=== PATIENT | female | born 1945 | race Caucasian/White ===

== ENCOUNTER 2017-09-25 20:12 | Emergency (ER) | payer OTHER, MEDICARE ==
--- NOTE | 2017-09-25 20:24 | PDOC ---
History of Present Illness - General History Source: Patient Exam Limitations: No Limitations - History of Present Illness Initial Comments: 09/25/17 20:31 The patient is a 71-year-old female, with no significant past medical history, who presents to the ED with a nosebleed that began about a hour an half ago. The patient denies any recent trauma to her nose. She does report that her father recently 2 weeks ago and she has been crying and blowing her nose more often. She denies being on any blood thinner medications. The patient denies any lightheadedness or dizziness. She denies any hx of bleeding disorders. PAST MEDICAL HISTORY: no significant history PAST SURGICAL HISTORY: no significant history FAMILY HISTORY: no pertinent history HISTORY: Pt lives with family and is employed. MEDICATIONS: reviewed ALLERGIES: As per nursing notes Adult ROS General: No fevers or chills, no weakness, no weight loss HEENT: (+)Nosebleed. No change in vision. No sore throat,. No ear pain CardioVascular: No chest pain or shortness of breath Respiratory:No cough, or wheezing. Gastrointestinal: no nausea, vomiting, diarrhea or constipation, No rectal bleeding Genitourinary: No dysuria, hematuria, or frequency Musculoskeletal: No joint or muscle pain or swelling Neurologic: No headache, vertigo, dizziness or loss of consciousness Psychiatric: nor depression Skin: No rashes or easy bruising Endocrine: no increased thirst or abnormal weight change Allergic: no skin or latex allergy All other systems reviewed and normal Basic PE GENERAL: The patient is awake, alert, and fully oriented, in no acute distress. EXTREMITIES: Normal range of motion, no edema. NEUROLOGICAL: Normal speech, normal gait. PSYCH: Normal mood, normal affect. SKIN: Warm, Dry, normal turgor, no rashes or lesions noted. <Wendy Seals - Last Filed: 09/25/17 20:31> - General History Source: Patient Exam Limitations: No Limitations - History of Present Illness Initial Comments: A portion of this note was documented by scribe services under my direction. I have reviewed the details of the note, within reason, and agree with the documentation. The case summary and management plan written by me. Assessment and plan: This is a 71-year-old female who came in with epistaxis. Patient held pressure to the nose for approximately 20 minutes prior to my evaluation. At the time of my evaluation the nose has stopped bleeding however there was an area of the septum that appeared to be bleeding. Patient requested that did not be cauterized as she did not want it cauterized. Patient otherwise is healthy and does not take any blood thinners and I discussed with her the importance of using a humidifier at night and placing a little petroleum jelly in her nose prior to going to bed to help with keeping the mucous membranes moist. Patient discharged will follow-up with her primary care doctor as needed 09/25/17 20:42 <Chen Queen I - Last Filed: 09/25/17 20:44> - General Chief Complaint: Nasal Bleeding Stated Complaint: NOSE BLEED Time Seen by Provider: 09/25/17 20:15 Past History <Wendy Seals - Last Filed: 09/25/17 20:31> <Chen Queen I - Last Filed: 09/25/17 20:44> - Past Medical History Allergies/Adverse Reactions: Allergies Allergy/AdvReac Type Severity Reaction Status Date / Time No Known Allergies Allergy Unverified 03/28/13 15:02 Home Medications: Ambulatory Orders Doxycycline Monohydrate [Oracea] 40 mg PO QOD 03/14/16 *DC/Admit/Observation/Transfer <Wendy Seals - Last Filed: 09/25/17 20:31> - Discharge Dispostion Admit: No <Chen Queen I - Last Filed: 09/25/17 20:44> Diagnosis at time of Disposition: Epistaxis - Discharge Dispostion Disposition: HOME Condition at time of disposition: Good - Patient Instructions Printed Discharge Instructions: Nosebleed, DI for Nosebleed, Nosebleeds ( Alternative Therapy) Additional Instructions: Use a humidifier in your room at night Put some petroleum jelly in your nose before bed as discussed. Return to the emergency department immediately with ANY new, persistent or worsening symptoms. Continue any medications as previously prescribed by your physician. You should follow up with your primary doctor as soon as possible regarding today's emergency department visit. . Please make sure your doctor reviews the results of your emergency evaluation. Thank you for coming to the Emergency Department today for your care. It was a pleasure to see you today. Please note that your evaluation is INCOMPLETE until you follow-up with your doctor.
[2017-09-25 20:46] VITALS: BP 180/98; PULSE 90; TEMP 97.8; BMI 22.4
== END 2017-09-25 20:52 | disposition home or self-care (01) ==
LOC: FER 20:12
DX: R04.0 Epistaxis (principal)
CPT/HCPCS: 99281-25

== ENCOUNTER 2018-01-21 11:18 | Day surgery (SDC) | payer SELFPAY ==
[2018-01-17 11:25] VITALS: BMI 20.9
[2018-01-21] MEDS ORDERED: BACITRACIN 15 GM TUBE TOPICAL OINTMENT ONE (13:34)
[2018-01-21] MEDS ORDERED: EPINEPHrine/PF 1 MG/1 ML (1:1,000) AMPULE ONE (13:34)
[2018-01-21] MEDS ORDERED: LIDOCAINE HCL 1%, 10 MG/ML (20ML VIAL) ONE (13:35)
[2018-01-21] MEDS ORDERED: PROPOFOL 20 ML ONE (13:46)
[2018-01-21] MEDS ORDERED: MIDAZOLAM HCL 2 MG/2 ML SINGLE DOSE VIAL ONE (13:47)
[2018-01-21] MEDS ORDERED: ceFAZolin SODIUM 1 GM VIAL ONE (14:20)
[2018-01-21] MEDS ORDERED: DEXAMETHASONE SOD PHOSPHATE 4 MG/1 ML VIAL ONE ×2 (14:21)
[2018-01-21] MEDS ORDERED: ONDANSETRON 4 MG/2 ML VIAL ONE ×3 (14:21→16:34)
[2018-01-21] MEDS ORDERED: DESFLURANE GAS 240 ML BOTTLE IH ONE (14:26)
[2018-01-21] MEDS ORDERED: KETOROLAC TROMETHAMINE 30 MG/1 ML VIAL ONE (16:02)
[2018-01-21] MEDS ORDERED: ONDANSETRON 4 MG/2 ML VIAL IVPB PRN (16:08)
[2018-01-21] MEDS ORDERED: oxyCODONE HCL 5 MG TABLET PO PRN ×2 (16:08)
[2018-01-21] MEDS ORDERED: ONDANSETRON 4 MG/2 ML VIAL IVPUSH PRN (16:09)
[2018-01-21] MEDS ORDERED: ACETAMINOPHEN 1000 MG/100 ML VIAL (NON FORMULARY) IVPB ONE (16:10)
--- NOTE | 2018-01-21 16:11 | OP ---
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
[2018-01-21] MEDS ORDERED: LACTATED RINGERS SOLUTION 1,000 ML IV SCH ×2 (16:15)
[2018-01-21 18:29] VITALS: BP 120/78; PULSE 74; TEMP 97.8
--- NOTE | 2018-01-21 21:01 | OP ---
DATE OF OPERATION: 01/21/2018 TITLE OF PROCEDURE: Liposuction of the abdomen and bilateral flanks and JUVEDERM injection to bilateral facial marionette lines. ATTENDING SURGEON: Gerry Valente MD ASSISTANTS: None. ANESTHESIA: General endotracheal. The patient is marked in the holding area. All risks, benefits, and alternatives to the procedure are discussed, understood; agree to proceed, including the limitations of liposuction for this patient. The patient is given RENARD hose and sequential compression stockings bilaterally. A gram of Ancef is given preoperatively. She is brought to the operating room, placed in supine position. Position is carefully checked by surgical and anesthesia teams. After anesthesia is given, she is prepped and draped in standard surgical fashion. A timeout is called. Patient, procedure, sites, and sides are verified. At this point, several stab wound incisions are made for access for infiltration of wetting solution. Wetting solution is infiltrated. A total of 1800 mL of wetting solution is infiltrated to the abdomen and flanks. The wetting solution is 2 L of lactated Ringer's, and within each liter is 20 mL of 1% lidocaine plain in 1 ampule of 1:1000 epinephrine. A full 25 minutes is awaited for the hemostatic effect of the wetting solution. During which, the injection of JUVEDERM to the marionette lines in a deep dermal plane is performed, 0.8 mL of JUVEDERM Ultra Plus XC is injected, split between the 2 marionette lines. The surgeon is re-scrubbed and prepped and gowned. After this, the SAFE technique of liposuction is performed with pre- and post-tunneling with a 4-mm basket-tip cannula. At completion of this, liposuction is then performed using traditional standard liposuction technique with 4 and 3-mm cannulas. Liposuction aspirates are as follows: The lower abdomen 300 mL, the right middle abdomen is 200 mL, the left middle abdomen is 200 mL, the right upper abdomen is 100 mL, the left upper abdomen is 150 mL, the right flank is 250 mL, the left flank is 200 mL. Total liposuction aspirate for the case is 1600 mL of liposuction aspirate. Endpoint is smooth even contour with the appearance of scant amounts of blood within the liposuction aspirate. Post tunneling is then performed with the 4-mm basket-tip cannula. A smooth even contour is observed. These liposuction holes are closed with a series of interrupted 5-0 nylon suture. Eye patches and Tegaderm are used for dressings. An abdominal binder is applied. Patient is awoken from anesthesia, transferred to Recovery without complication. Sarah [id number]
== END 2018-01-21 18:29 | disposition home or self-care (01) ==
LOC: FASU 11:18
PROVIDERS: ATTEND Plastic Surgery
PROC: 0J083ZZ Alteration of Abdomen Subcutaneous Tissue and Fascia, Percutaneous Approach (ICD-10-PCS; principal; 2018-01-21 14:35)
DX: Z41.1 Encounter for cosmetic surgery (principal)
CPT/HCPCS: 94760

== ENCOUNTER → 2018-09-06 | Day surgery (SDC) | payer OTHER, MEDICARE ==
--- NOTE | 2018-09-09 16:55 | PATH ---
Surgical Pathology Report Patient Name: PINA MEI [facility]. Rec. #: [id number] /Age/Gender: 1945 (Age: 72) / F Account: [id number] Location: [facility] Taken: 09/06/2018 Received: 09/06/2018 Reported: 09/09/2018 Physicians: Christian Tucker M.D. Specimen(s) Received LEFT BREAST CORE BIOPSY 3:00, 4-5 CM FN Clinical History Highly suspicious/malignant Final Diagnosis BREAST, LEFT, 3:00, 4-5 CM FN, CORE BIOPSY: INVASIVE LOBULAR CARCINOMA WITH CLASSIC AND TRABECULAR FEATURES, AT LEAST 5 MM IN THIS MATERIAL. LOBULAR CARCINOMA IN SITU, CLASSICAL TYPE. Results of Estrogen Receptor (ER) and Progesterone Receptor (NH) studies performed at [facility] are as follows: ER (clone [id number] mouse monoclonal antibody by Leica): 100% nuclear staining with strong intensity (Positive). NH (clone16 mouse monoclonal antibody by Leica): > 95% nuclear staining with strong intensity (Positive). Comment: Immunohistochemical stains performed and interpreted at [facility] show E-Cadherin is negative, supportive of lobular phenotype. Myoepithelial markers (p63 and SMM-HC) are preserved in LCIS, while negative on the invasive carcinoma. Results of Her2 (IHC) & Ki-67 studies pending and will be reported separately. Positive and negative controls (internal if applicable) show appropriate results. Formalin fixation and cold ischemic times are within current ASCO/CAP recommendations for ER, NH and Her2 testing. Electronically Signed Orly Harvey M.D. Addendum Reported: 09/12/2018 Addendum Diagnosis Results of Her2 (IHC) & Ki-67 studies performed at [place], [place] ([id number]) are as follows: Her2 IHC (EP3 from [employer], formerly known as [id number], using Ortiz Polymer Refine detection kit): 1+ (Negative). Ki-67: ~10% (Low proliferative index). Positive and negative controls (internal if applicable) show appropriate results. Orly Harvey M.D. Gross Description Received in formalin labeled "left breast biopsy 3:00, 4-5cmfn," is a 2.3 x 1.8 x 0.3 cm area of lopez-yellow, irregular to cylindrical portions of fibroadipose tissue. The formalin is filtered and the specimen is entirely submitted in one cassette. Time to formalin fixation: Less than one minute Total formalin fixation time: Approximately 6 hours. 09/06/201809/06/2018
--- NOTE | 2018-09-13 08:33 | OP ---
DATE OF OPERATION: 09/06/2018 PREOPERATIVE DIAGNOSIS: Left breast mass at 3 o'clock, 4 to 5 cm from the nipple. POSTOPERATIVE DIAGNOSIS: Left breast mass at 3 o'clock, 4 to 5 cm from the nipple. PROCEDURE PERFORMED: Left ultrasound-guided core biopsy with clip placement. ATTENDING SURGEON: Christian Tucker MD ANESTHESIA: Local. ESTIMATED BLOOD LOSS: Minimal. COMPLICATIONS: None. DESCRIPTION OF PROCEDURE: The patient was made aware of the risks and benefits of the procedure and consented. She was placed in the supine position. Under sterile conditions and 1% lidocaine for local anesthesia, a small renae was made in the skin. Using a 10-gauge suction biopsy device via an inferior lateral approach, under ultrasound guidance, multiple cores were obtained and submitted to Pathology. Likewise, under ultrasound guidance, a bowtie clip was placed into the biopsy region. This was well tolerated by the patient. Steri-Strip and a sterile bandage were applied. We will contact her with the results. CHRISTIAN TUCKER M.D. [id number]
== END | disposition home or self-care (01) ==
LOC: FRADUS-SUR 12:46
PROVIDERS: ATTEND Surgery Surgical Oncology
PROC: 0HBU3ZX Excision of Left Breast, Percutaneous Approach, Diagnostic (ICD-10-PCS; principal; 2018-09-06)
DX: C50.912 Malignant neoplasm of unspecified site of left female breast (principal); Z17.0 Estrogen receptor positive status [ER+]; D05.02 Lobular carcinoma in situ of left breast
CPT/HCPCS: 19083; 77065-TC; 87899; 88305-TC; 88342-TC; A4648

== ENCOUNTER → 2018-09-24 | Day surgery (SDC) | payer OTHER, MEDICARE ==
--- NOTE | 2018-09-25 14:15 | PATH ---
Surgical Pathology Report Patient Name: PINA MEI [facility]. Rec. #: [id number] /Age/Gender: 1945 (Age: 72) / F Account: [id number] Location: [facility] Taken: 09/24/2018 Received: 09/24/2018 Reported: 09/25/2018 Physicians: Sarah Thompson M.D. Specimen(s) Received LEFT BREAST CORE BIOPSY Clinical History Newly diagnosed left breast cancer Final Diagnosis LEFT BREAST, 2 - 3:00 RETRO, CORE BIOPSY: INVASIVE LOBULAR CARCINOMA WITH CLASSICAL AND TRABECULAR FEATURES, NUCLEAR GRADE 2, MEASURING AT LEAST 0.7 CM IN GREATEST DIMENSION ON THIS SLIDE. LOBULAR CARCINOMA IN SITU, CLASSICAL TYPE. Results of Estrogen Receptor (ER) and Progesterone Receptor (WI) studies performed on block "1" at [facility] are as follows: ER (clone 6F11 mouse monoclonal antibody by Leica): 100% nuclear staining with strong intensity (Positive). WI (clone16 mouse monoclonal antibody by Leica): 100% nuclear staining with strong intensity (Positive). Positive and negative controls (internal if applicable) show appropriate results. Formalin fixation and cold ischemic times are within current ASCO/CAP recommendations for ER, WI and Her2 testing. Comment: Immunohistochemical stains performed and interpreted at [facility] show the following results: smooth muscle myosin heavy chain and p63 show loss of the myoepithelial cell layer in the areas of invasive carcinoma. The tumor cells are to be negative for E-Cadherin, which supports the lobular phenotype. Reports for Her 2 and Ki-67 to follow. Electronically Signed Vashti Gibson M.D. Addendum Reported: 09/26/2018 Addendum Diagnosis Results of Her2 (IHC) & Ki-67 studies performed on this specimen at [place], [place] ([id number]) interpreted at [facility] are as follows: Her2 IHC (EP3 from [employer], formerly known as [id number], using Ortiz Polymer Refine detection kit): 1+ (Negative) Ki-67: ~20% (intermediate proliferative index) Vashti Gibson M.D. Gross Description Received in formalin labeled "left breast biopsy 2:00 to 3:00 retro," are 9 lopez-yellow, cylindrical portions of fibroadipose tissue ranging from 0.2-0.8 cm in length and averaging 0.1 cm in diameter. The specimens are submitted in toto in one cassette. Time to formalin fixation: 2 minutes Total formalin fixation time: Approximately 6 hours. 09/24/2018 [facility]09/24/2018
== END | disposition home or self-care (01) ==
LOC: FRADUS-SUR 12:05
PROVIDERS: ATTEND Surgery Surgical Oncology
PROC: 0HBU3ZX Excision of Left Breast, Percutaneous Approach, Diagnostic (ICD-10-PCS; principal; 2018-09-24)
DX: C50.912 Malignant neoplasm of unspecified site of left female breast (principal); Z17.0 Estrogen receptor positive status [ER+]; N63.21 Unspecified lump in the left breast, upper outer quadrant
CPT/HCPCS: 19083; 77065-TC; 87899; 88305-TC; 88341-TC; 88342-TC; A4648

== ENCOUNTER 2018-10-11 11:00 | Inpatient (IN) | payer OTHER, MEDICARE ==
--- NOTE | 2018-10-03 10:01 | HP ---
Admitting History and Physical - Primary Care Physician PCP: Christian Tucker - Admission Chief Complaint: Left breast cancer History of Present Illness: 72 year old postmenapausal female with left assymetry on recent mammogram. Left breast Us showed 1.3 cm highly suspicious irregular mass. US core biopsy left breast @ 3:00 4-5 cm FN showed an invasive lobular carcinoma ER/MT+ and HER2 - . Breast MRI showed left 3:00 density retroareolar density for which Us was done showing invasive lobular carcinoms ER/MT+, HER2-. Right breast negative. Since left breast bxs show multicentric dz a mastectomy is recommended. History Source: Patient Limitations to Obtaining History: No Limitations - Past Medical History Cardiovascular: Yes: HTN, Hyperlipdemia Endocrine: Yes: Other (Thyroid goiter S/P subtotal thyroidectomy 2005) - Past Surgical History Additional Past Surgical History: subtotal thyroidectomy goiter 2005 - Smoking History Smoking history: Never smoked Have you smoked in the past 12 months: No - Alcohol/Substance Use Hx Alcohol Use: Yes (WINE WITH DINNER) Home Medications - Allergies Allergies/Adverse Reactions: Allergies Allergy/AdvReac Type Severity Reaction Status Date / Time cat dander Allergy Intermediate Itching Verified 01/17/18 11:26 No Known Drug Allergies Allergy Verified 01/17/18 11:26 - Home Medications Home Medications: Ambulatory Orders Doxycycline Monohydrate [Oracea] 40 mg PO QOD 03/14/16 Carisoprodol [Soma] 350 mg PO HS PRN 01/17/18 Metoprolol Succinate [Toprol Xl] 25 mg PO DAILY 01/17/18 Temazepam [Restoril] 7.5 mg PO HS 01/21/18 Family Disease History - Family Disease History Family History: Denies Physical Examination Constitutional: Yes: Well Nourished Breast(s): Yes: Other (diffusely nodular bilaterally post biopsy changes left breast no palapble adenopathy bilaterlly no masses palpable in right breast) Problem List - Problems (1) Breast cancer, left breast Code(s): C50.912 - MALIGNANT NEOPLASM OF UNSPECIFIED SITE OF LEFT FEMALE BREAST Qualifiers: Breast location: overlapping sites of breast Estrogen receptor status: positive Patient sex: female Qualified Code(s): C50.812 - Malignant neoplasm of overlapping sites of left female breast; Z17.0 - Estrogen receptor positive status [ER+] Assessment/Plan Left total non nipple sparing mastectomy left sentenel node biopsy possible axillary node dissection reconstruction
[2018-10-03 13:41] VITALS: BMI 22.4
[2018-10-11] MEDS ORDERED: ROCURONIUM BROMIDE 50 MG/5 ML VIAL ONE ×2 (12:32→16:00)
[2018-10-11] MEDS ORDERED: MIDAZOLAM HCL 2 MG/2 ML SINGLE DOSE VIAL ONE ×2 (12:32→13:19)
[2018-10-11] MEDS ORDERED: DEXAMETHASONE SOD PHOSPHATE 4 MG/1 ML VIAL ONE (12:32)
[2018-10-11] MEDS ORDERED: LIDOCAINE HCL/PF 2% SDV 5ML VIAL ONE (12:32)
[2018-10-11] MEDS ORDERED: PROPOFOL 20 ML ONE (12:32)
[2018-10-11] MEDS ORDERED: fentaNYL CITRATE 250 MCG/5 ML VIAL ONE (12:32)
[2018-10-11] MEDS ORDERED: ONDANSETRON 4 MG/2 ML VIAL ONE (12:32)
[2018-10-11] MEDS ORDERED: GENTAMICIN SO4 80 MG/2 ML VIAL ONE (12:46)
[2018-10-11] MEDS ORDERED: ISOSULFAN BLUE 10 MG/ML VIAL SQ ONE (12:46)
[2018-10-11] MEDS ORDERED: ceFAZolin SODIUM 1 GM VIAL ONE ×2 (12:46→14:33)
[2018-10-11] MEDS ORDERED: DEXAMETHASONE SOD PHOSPHATE/PF 10 MG/ML SDV ONE (13:19)
[2018-10-11] MEDS ORDERED: ROPIVACAINE HCL 0.5% 30ML VIAL ONE (13:19)
[2018-10-11] MEDS ORDERED: DESFLURANE GAS 240 ML BOTTLE IH ONE (16:03)
[2018-10-11] MEDS ORDERED: ACETAMINOPHEN 325 MG TABLET (FP) PO PRN (16:45)
[2018-10-11] MEDS ORDERED: DEXTROSE 5%-0.45% SALINE 1,000 ML IV SCH (16:45)
[2018-10-11] MEDS ORDERED: ZOLPIDEM TARTRATE 5 MG TABLET PO PRN (16:45)
[2018-10-11] MEDS ORDERED: ONDANSETRON 4 MG/2 ML VIAL IVPUSH PRN (16:45)
[2018-10-11] MEDS ORDERED: NITROGLYCERIN 2% OINTMENT - 1GM PACKET TD ONE ×2 (18:05→18:25)
[2018-10-11] MEDS ORDERED: BACITRACIN 15 GM TUBE TOPICAL OINTMENT ONE (18:05)
[2018-10-11] MEDS ORDERED: BACITRACIN 15 GM TUBE TOPICAL OINTMENT TP ONE (18:25)
[2018-10-11] MEDS ORDERED: oxyCODONE HCL 5 MG TABLET PO PRN (19:02)
[2018-10-11] MEDS ORDERED: LACTATED RINGERS SOLUTION 1,000 ML IV SCH (19:15)
[2018-10-11] MEDS: ACETAMINOPHEN 325 MG TABLET (FP) PO SCH (20:44)
[2018-10-11] MEDS: CEFAZOLIN 1 GM/D5W 1 GM/50 ML BAG IVPB SCH (20:44)
[2018-10-11] MEDS ORDERED: ATORVASTATIN CA 10 MG TABLET (FP) PO SCH (22:00)
[2018-10-11] MEDS ORDERED: GABAPENTIN 100 MG CAPSULE (FP) PO SCH (22:00)
--- NOTE | 2018-10-11 22:01 | OP ---
DATE OF OPERATION: 10/11/2018 PREOPERATIVE DIAGNOSIS: Left breast cancer. POSTOPERATIVE DIAGNOSIS: Left breast cancer. PROCEDURE: Left modified radical mastectomy with left axillary sentinel node biopsy. ANESTHESIA: General intubated. ATTENDING SURGEON: John Tucker MD PROFESSOR OF SPANISH: KENNA Benitez ESTIMATED BLOOD LOSS: 200 mL COMPLICATIONS: None. DESCRIPTION OF PROCEDURE: Patient was made aware of the risks and benefits of the procedure and consented. Preoperatively, she went to Nuclear Medicine where lymphoscintigraphy was performed. She was then placed in supine position on the operating room table, and after general anesthesia was induced, the patient was intubated. An elliptical incision was made in the left axilla. Using sharp and blunt dissection, tissues were dissected down, which revealed a cluster of hot lymph nodes. These were surgically excised and submitted for frozen section. Frozen section reported as positive for metastasis. By this time, we had started the mastectomy. An attempt at nipple-sparing approach was performed. An inframammary incision measuring 11 cm was made. Using electrocautery, the tissue was taken off the pectoralis muscle extending to the clavicle superior, lateral to latissimus dorsi, and medial to the sternum. Using sharp dissection, skin flaps were made to the nipple where a subareolar biopsy was performed for frozen section. In addition, laterally, there was some firm tissue, and this was likewise excised and submitted for frozen section. 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 The dissection was completed superior to the clavicle, medial to the sternum, lateral to latissimus dorsi, and the breast tissue was taken out, submitted with short suture superior, long suture lateral. Specimen radiograph confirmed the presence of the index lesion. An elliptical incision was made around the nipple since there was subareolar cancer, and this was submitted with a short suture superior, long suture lateral. The axillary dissection was then performed by widening the incision and releasing the axillary tissue by incising the clavipectoral fascia just lateral to the pectoralis minor. Along the chest wall, the long thoracic nerve was identified along its length and retracted medially. Likewise, the thoracodorsal trunk was identified, and the tissues between the two were bluntly and sharply dissected free using electrocautery and hemoclips. This was submitted as axillary contents. The procedure was then turned over to Dr. Valente who did an shadowgraph operator and flap reconstruction. He will dictate his portion of the procedure separately. JOHN TUCKER M.D. [id number]
--- NOTE | 2018-10-11 22:50 | OP ---
DATE OF OPERATION: 10/11/2018 TITLE OF PROCEDURE: 1. Left breast reconstruction using tissue plant equipment engineer. 2. Left breast reconstruction using acellular dermal matrix. 3. Complex 6-cm wound closure to left axilla. 4. Intraoperative SPY angiography assessment of mastectomy flaps. ATTENDING SURGEON: Gerry Jean MD ANESTHESIA: General endotracheal. The procedure is performed in combination with a left modified radical mastectomy performed by Dr. Christian Tucker. That portion of the procedure will be dictated separately by Dr. Tucker. The patient had been marked in the holding area. The planned surgery by Dr. Tucker was a nipple-sparing mastectomy using an inframammary approach. The plan for lowering inframammary fold 1.5 cm to compensate for the contralateral ptosis is made. Those markings are made on the patient. Risks, benefits, and alternatives are discussed at length, which are fully understood and agree to proceed. Additionally, the patient is given RENARD compression hose and sequential compression devices on the legs bilaterally. She is brought to the operating room, placed in supine position. Position is carefully checked by surgical and anesthesia teams. She is given a García catheter after induction of general anesthesia. She is prepped and draped in standard surgical fashion. After which, a timeout is called. Patient, procedure, sites, and sides are verified. At this point, Dr. Tucker performed his procedure, and I am called in to commence my reconstruction after this is completed. The procedure performed, however, required a separate resection of the nipple-areola and a complete left-sided lymph node dissection. Based on the additional findings of cancer in the retroareolar biopsy and positive lymph nodes, there is now less skin than anticipated, and a single-stage implant reconstruction will not be possible. There is additionally a higher likelihood of the patient needing radiation, and for both of these reasons, the decision is made to change the planned reconstruction to a tissue plant equipment engineer. The base width of the breast measured preoperatively was 14 cm. These markings for a 14-cm width tissue plant equipment engineer are then placed on the chest wall. Hemostasis then meticulously achieved. The lateral border of the pectoralis major muscle is then elevated and from its costal attachments inferiorly. The markings were made at the new inframammary fold and the new lateral mammary fold. AlloDerm is then brought onto the field and rinsed with triple antibiotic solution. It is oriented properly and secured to the inframammary fold and the lateral mammary fold. At this point, an [employer] Systems[employer] Deadeye Marksmanshipe style [id number] tissue plant equipment engineer is brought onto the field, rinsed with triple antibiotic solution, evacuated of all air. It is then oriented properly, placed into the pocket. The superior free margin of the AlloDerm is then secured to the inferior free margin of the pectoralis major muscle using a 3-0 PDS suture. Given the aforementioned skin shortage, no fluid is placed into the plant equipment engineer. An indocyanine SPY intraoperative angiography is then performed showing hypoperfusion to the inferior-most portion of the flap. However, given the current skin quantity, no additional skin at this point can be sacrificed, and it is determined that we will observe the skin in the postoperative period to determine whether or not an additional procedure is required. The wounds were copiously irrigated with triple antibiotic solution. Standard triple antibiotic solution is used. A size 10 flat Yordy drain is brought out through the lateral stab wound incisions and secured with 2-0 silk drain sutures. The inferior-more drain is placed in the inferior recess of the wound, and the superior-more drain is placed in the superior recess of the wound. The 3 incisions are closed as follows: The incisions for the nipple-areolar excision are closed with a running breast capsular, fatty 3-0 Monocryl suture, followed by a series of interrupted, buried, deep dermal 3-0 Monocryl suture, followed by a running subcuticular 3-0 Monocryl suture. The inframammary fold is closed in the same fashion, and the axillary wound is closed first by closure of the deep axillary fascia with space occupying sutures using a 3-0 Monocryl suture. The dermis is then approximated with a running locking 3-0 Monocryl suture, and the skin is then closed with a running interrupted 3-0 Monocryl suture. Please note that the distal millimeters of skin are trimmed prior to the final closure. Several 4-0 nylon sutures are used to correct any irregularities. Nitropaste is placed on the portion of the mastectomy flap that seemed hypoperfused. The axilla is dressed with Steri-Strips. The remainder of the breast is dressed with bacitracin, Xeroform gauze, ABD gauze, and a breast binder. Drains were placed to bulb suction. Patient awoken from anesthesia, transferred to Recovery without complication. Please note there was no fluid within the tissue plant equipment engineer. GERRY JEAN M.D. [id number]
[2018-10-12] MEDS: oxyCODONE HCL 5 MG TABLET PO PRN ×2 (00:57→06:06)
[2018-10-12] MEDS: ACETAMINOPHEN 325 MG TABLET (FP) PO SCH ×2 (00:57→06:47)
[2018-10-12] MEDS: CEFAZOLIN 1 GM/D5W 1 GM/50 ML BAG IVPB SCH (03:14)
[2018-10-12 06:34] VITALS: BP 100/51; PULSE 93; TEMP 97.8
[2018-10-12] MEDS ORDERED: LEVOTHYROXINE NA 88 MCG TABLET (FP) PO SCH (07:00)
[2018-10-12] MEDS ORDERED: HEPARIN NA (PORCINE) 5,000 UNITS/ML 1ML VIAL SQ SCH (08:00)
[2018-10-12 08:42] LABS: HEMATOCRIT 31.5 % (32.4-45.2); HEMOGLOBIN 10.3 GM/dl (10.7-15.3); MCH 32.3 pg (25.7-33.7); MCHC 32.8 g/dl (32.0-36.0); MEAN CELL VOLUME 98.4 fl (80-96); PLATELET COUNT 266 K/MM3 (134-434); RDW 13.3 % (11.6-15.6); WHITE BLOOD COUNT 10.4 K/mm3 (4.0-10.8)
[2018-10-12] MEDS ORDERED: metoPROLOL SUCCINATE 25 MG TAB.SR.24H (FP) PO SCH (10:00)
--- NOTE | 2018-10-12 13:15 | PN ---
Progress Note (short form) - Note Progress Note: POD 1 Pain well controlled VSS AF Ambulating, Sincere PO Using IS AKANKSHA's thin and working with no collections. serosanguinous output Meets criteria for discharge D/W Dr. Tucker option for HBO considering dusky skin bridge. He asked to hold of because the margins are yet unknown. Will treat dusky skin with nitropaste and close follow up. Patient informed that she may need flap salvage of reconstruction depending on how the skin heals.
[2018-10-12] MEDS ORDERED: CEFAZOLIN 1 GM/D5W 50 ML IVPB SCH (15:00)
[2018-10-12] MEDS ORDERED: CEFAZOLIN 1 GM/D5W 1 GM/50 ML BAG IVPB SCH (15:00)
--- NOTE | 2018-10-17 16:21 | PATH ---
Surgical Pathology Report Patient Name: IPNA MEI Med. Rec. #: [id number] /Age/Gender: 1945 (Age: 72) / F Account: [id number] Location: [facility] MED-SURG Taken: 10/11/2018 Received: 10/11/2018 Reported: 10/17/2018 Physicians: Christian Tucker M.D. Specimen(s) Received A: LEFT AXILLARY SENTINEL NODES B: LEFT CENTRAL SUBAREOLAR BIOPSY C: LEFT LATERAL SUBAREOLAR BIOPSY D: LEFT BREAST MASTECTOMY E: LEFT AXILLARY CONTENTS F: LEFT NIPPLE Clinical History Left breast cancer Intraoperative Consult Diagnosis A. Left axillary sentinel node, excision (FS): Carcinoma. B. Left central subareolar biopsy, excision (FS): Focal in situ carcinoma, favor LCIS. C. Left lateral subareolar biopsy, excision (FS): Invasive and in situ carcinoma. Gaby Goyal M.D., 10/11/2018 Final Diagnosis A. AXILLARY SENTINEL LYMPH NODES, LEFT, EXCISION (FS): THREE OF FIVE LYMPH NODES WITH METASTATIC CARCINOMA ON H & E AND CONFIRMED BY AE1/3. IMMUNOHISTOCHEMICAL STAIN (3/5). TUMOR DEPOSIT MEASURES 5 MM IN GREATEST MICROSCOPIC DIMENSION. FOCAL EXTRANODAL EXTENSION IDENTIFIED. B. SUBAREOLAR, CENTRAL, LEFT, BIOPSY (FS): LOBULAR CARCINOMA IN SITU (LCIS), CLASSICAL TYPE. SEE PARTS D & F. C. SUBAREOLAR, LATERAL, LEFT, BIOPSY (FS): INVASIVE LOBULAR CARCINOMA. TUMOR MEASURES 1.3 CM IN GREATEST MICROSCOPIC DIMENSION. LOBULAR CARCINOMA IN SITU (LCIS), CLASSICAL TYPE. SEE PARTS D AND F. D. BREAST, LEFT, MASTECTOMY: TWO FOCI OF INVASIVE LOBULAR CARCINOMA, NUCLEAR GRADE 2 (TUBULE SCORE: 3/3, NUCLEAR GRADE: 2/3, MITOTIC SCORE: 1/3; TOTAL BENEDICT SCORE: 6/9). INVASIVE CARCINOMA MEASURES 1.4 CM AND 3 MM IN GREATEST MICROSCOPIC DIMENSION, LOCATED AT SUB/RETROAREOLAR AND UPPER OUTER QUADRANT (UOQ). LOBULAR CARCINOMA IN SITU (LCIS), CLASSICAL TYPE. LYMPHOVASCULAR INVASION IDENTIFIED. SURGICAL MARGIN IS INVOLVED BY INVASIVE CARCINOMA AT ANTERIOR SOFT TISSUE MARGIN (SUB/RETROAREOLAR); REMAININGS MARGINS ARE WIDELY FREE. SEE PART F FOR FINAL ANTERIOR MARGIN. PRIOR BIOPSY SITE CHANGES ARE PRESENT. REMAINDER OF BREAST PARENCHYMA SHOWS FIBROCYSTIC CHANGES INCLUDING STROMAL FIBROSIS, MICROCYSTS, APOCRINE METAPLASIA, USUAL DUCTAL HYPERPLASIA, AND COLUMNAR CELL CHANGES WITH FOCAL ATYPIA. PATHOLOGIC STAGE (pTNM): pT1c (m) pN1a. SEE INVASIVE CARCINOMA CASE SUMMARY BELOW. E. AXILLARY CONTENTS, LEFT, DISSECTION: TWELVE LYMPH NODES NEGATIVE FOR CARCINOMA (0/12). F. NIPPLE, LEFT, EXCISION: INVASIVE LOBULAR CARCINOMA. TUMOR MEASURES 6 MM IN GREATEST MICROSCOPIC DIMENSION. LOBULAR CARCINOMA IN SITU (LCIS), CLASSICAL TYPE. INVASIVE CARCINOMA EXTENDS TO DEEP MARGIN. FOCAL ATYPICAL DUCTAL HYPERPLASIA. SEE PART C AND D FOR FINAL MARGINS. Comment: The sub/retroareolar foci of invasive lobular carcinoma appears to have been transected (seen in parts C,D,F), with greatest tumor size noted in part C. Immunohistochemical stains performed and interpreted at [facility] show E-cadherin (parts C, D, F) are negative, supportive of lobular phenotype. Comments Breast Invasive Carcinoma: Surgical Pathology Case Summary (Based on AJCC TNM 8 th edition) Procedure _X__ Total mastectomy Specimen Laterality _X__ Left Tumor Size _X__ Greatest dimension of largest invasive focus >1 mm (specify exact measurement) (millimeters): _14__ mm Two foci: 13 mm (sub/retroareolar, parts C, D, F) and 14 mm (UOQ, part D). Histologic Type _X_ Invasive lobular carcinoma Histologic Grade (Beaver Histologic Score) Glandular (Acinar)/Tubular Differentiation _X__ Score 3 (<10% of tumor area forming glandular/tubular structures) Nuclear Pleomorphism _X_ Score 2 Mitotic Rate _X__ Score 1 Overall Grade _X__ Grade 2 (scores of 6) Tumor Focality _X_ Multiple foci of invasive carcinoma Number of foci: 2 Ductal Carcinoma In Situ (DCIS) _X__ No DCIS in specimen Margins Invasive Carcinoma Margins _X__ Uninvolved by invasive carcinoma Distance from closest margin (millimeters): Anterior soft tissue (sub/retroareolar area) is involved at mastectomy (part D); but negative in final Nipple excision (part F). Posterior margin is involved at Nipple excision (part F); but negative in mastectomy (part D). Closest margin: Anterior soft tissue (sub/retroareolar) and posterior DCIS Margins _X__ No DCIS in specimen Regional Lymph Nodes Number of Lymph Nodes with Macrometastases (>2 mm): 3 Number of Lymph Nodes with Micrometastases (>0.2 mm to 2 mm and/or >200 cells): 0 Number of Lymph Nodes with Isolated Tumor Cells (=0.2 mm and =200 cells): 0 Size of Largest Metastatic Deposit (millimeters): 5 mm Extranodal Extension: _X__ Present (focal) Number of Lymph Nodes Examined: 17 Number of [place] Nodes Examined : 5 Treatment Effect _X__ No known presurgical therapy Lymphovascular Invasion _X__ Identified Pathologic Stage Classification (pTNM, AJCC 8th Edition) TNM Descriptors _X__ m (multiple foci of invasive carcinoma) Primary Tumor (Invasive Carcinoma) (pT) _X__ pT1c: Tumor >10 mm but =20 mm in greatest dimension Regional Lymph Nodes (pN) Category (pN) _X__ pN1a: Metastases in 1 to 3 axillary lymph nodes, at least 1 metastasis larger than 2.0 mm Biomarker Studies Results of ER and KY studies performed on prior biopsy (D19-30) at [facility] are as follows: ER (clone [id number] mouse monoclonal antibody by [employer]): 100% nuclear staining with strong intensity (Positive). KY (clone16 mouse monoclonal antibody by [employer]): 100% nuclear staining with strong intensity (Positive). Results of Her2 (IHC) & Ki-67 studies performed on prior biopsy (D19-30) at [place], [place] ( ET19-39) are as follows: Her2 IHC (EP3 from [employer], formerly known as [id number], using [employer]iz Polymer Refine detection kit): 1+ (Negative). Ki67: ~20% (Intermediate proliferative index). Electronically Signed Orly Harvey M.D. Gross Description A. Received fresh labeled "left axillary sentinel node," are multiple fragments of nodular soft tissue measuring 5.0 x 2.0 x 2.0 cm in aggregate. The fragments range from 0.3-2.5 cm in greatest dimension. Five lymph nodes are identified. The specimen is entirely submitted for frozen section in 2 cassettes as follows: 1- frozen section residue: two lymph nodes, largest lymph node bisected; 2-frozen section residue: three lymph nodes. B. Received fresh labeled "left central subareolar biopsy," is a 1.0 x 0.5 x 0.5 cm portion of lopez-red fibroadipose tissue. The specimen is submitted for frozen section. The frozen section residue is entirely submitted in one cassette. C. Received fresh labeled "left lateral subareolar biopsy," is a 2.0 x 1.5 x 0.3 cm portion of lopez-red fibroadipose tissue. The specimen is submitted for frozen section. The frozen section residue is entirely submitted in one cassette. D. Received in formalin, labeled "left breast mastectomy," is a 705 gram, 21.0 x 19.0 x 4.5 cm. left mastectomy specimen with a short suture marking the superior aspect and a long suture marking the lateral aspect of the specimen, per the surgeon. There is no skin or nipple present. The deep margin is inked black and the anterior soft tissue margin is inked blue. The specimen is serially sectioned from medial to lateral. Sectioning reveals a 1.0 x 1.0 x 0.9 cm ill-defined mass associated with a hemorrhagic biopsy site in the central, sub/retroareolar region. The mass abuts the anterior soft tissue margin and is 3 cm from the deep margin. Additionally, there is a 2.4 x 1.0 x 1.0 cm ill-defined mass in the upper outer quadrant (UOQ). The mass is 0.9 cm from the anterior soft tissue margin and 1.5 cm from the deep margin. The remaining breast parenchyma displays foci of firm fibrous tissue. Machine Ironer sections are submitted in 13 cassettes as follows: 1-full face section of sub/retroareolar mass with anterior soft tissue margin; 2-additional full face section of sub/retroareolar mass with anterior soft tissue margin; 5-6-vatxlawqga sub/retroareolar mass with anterior soft tissue margin; 5-full face section of UOQ mass with the anterior soft tissue margin; 6-additional UOQ mass with anterior soft tissue margin; 7-uninvolved UOQ tissue; 8-lower outer quadrant; 9-10-upper inner quadrant; 11-12-lower inner quadrant; 13-deep margin. Time to formalin fixation: 50 minutes Total formalin fixation time: Approximately 74 hours. E. Received in formalin labeled "left axillary contents," is 11.5 x 9.0 x 2.8 cm aggregate of multiple portions of fibroadipose tissue. Sectioning reveals multiple lopez lymph nodes ranging from 0.3-1.4 cm in greatest dimension. The lymph nodes are entirely submitted in 7 cassettes as follows: 1-5-two whole possible lymph nodes each; 6-7-one bisected lymph node each. F. Received in formalin labeled "left nipple," is a 6.2 x 4.2 x 2.2 cm portion of fibroadipose tissue with a short suture marking the superior aspect and a long suture marking the lateral aspect of the specimen, per the surgeon. There is no needle localization wire present. The anterior surface displays a 5.0 x 3.0 cm lopez, elliptical portion of skin with a 1.0 cm in diameter nipple. The specimen is inked as follows: Superior blue; inferior green; lateral red; medial yellow; deep black. The specimen is serially sectioned from lateral to medial. Sectioning reveals unremarkable fibroadipose tissue. No definitive mass is identified. Machine Ironer sections including the majority of the specimen are sequentially submitted in 12 cassettes (lateral margin in cassette 1, medial margin in cassette 12 and nipple in cassettes 8-10). 10/14/2018 [facility]10/14/2018
== END 2018-10-12 14:10 | disposition home or self-care (01) | DRG 582 ==
LOC: FM/S 12:14
PROVIDERS: ADMIT Surgery Surgical Oncology; ATTEND Surgery Surgical Oncology
PROC: 4A1GXSH Monitoring of Skin and Breast Vascular Perfusion using Indocyanine Green Dye, External Approach (ICD-10-PCS; 2018-10-11)
PROC: 0HTU0ZZ Resection of Left Breast, Open Approach (ICD-10-PCS; principal; 2018-10-11 14:51)
PROC: 07T60ZZ Resection of Left Axillary Lymphatic, Open Approach (ICD-10-PCS; 2018-10-11 14:51)
PROC: 0HHU0NZ Insertion of Tissue Expander into Left Breast, Open Approach (ICD-10-PCS; 2018-10-11 14:51)
DX: C50.812 Malignant neoplasm of overlapping sites of left female breast (principal); C77.3 Secondary and unspecified malignant neoplasm of axilla and upper limb lymph nodes; Z17.0 Estrogen receptor positive status [ER+]; I10 Essential (primary) hypertension; E78.5 Hyperlipidemia, unspecified
CPT/HCPCS: 36415; 78195-TC; 85027; 88307-TC; 88331-TC; 88342-TC; 94760; A9541

== ENCOUNTER 2019-02-03 09:18 | Day surgery (SDC) | payer OTHER, MEDICARE ==
[2019-01-27 12:41] VITALS: BMI 21.1
[2019-02-03] MEDS ORDERED: GENTAMICIN SO4 80 MG/2 ML VIAL ONE (11:49)
[2019-02-03] MEDS ORDERED: ceFAZolin SODIUM 1 GM VIAL ONE ×2 (11:49→13:37)
[2019-02-03] MEDS ORDERED: BUPIVACAINE LIPOSOME/PF (EXPAREL) 266 MG/20 ML VIAL ONE (12:49)
[2019-02-03] MEDS ORDERED: BUPIVACAINE HCL/PF 2.5 MG/ML - 30 ML VIAL IJ ONE (12:50)
[2019-02-03] MEDS ORDERED: MIDAZOLAM HCL 2 MG/2 ML SINGLE DOSE VIAL ONE (13:21)
[2019-02-03] MEDS ORDERED: PROPOFOL 20 ML ONE ×2 (13:24→16:02)
[2019-02-03] MEDS ORDERED: ONDANSETRON 4 MG/2 ML VIAL ONE ×2 (13:40→16:41)
[2019-02-03] MEDS ORDERED: DEXAMETHASONE SOD PHOSPHATE 4 MG/1 ML VIAL ONE (13:40)
[2019-02-03] MEDS ORDERED: BUPIVACAINE HCL/PF 0.25% (2.5MG/ML) 10 ML VIAL IJ ONE ×2 (14:35)
[2019-02-03] MEDS ORDERED: BUPIVACAINE LIPOSOME/PF (EXPAREL) 266 MG/20 ML VIAL NR ONE ×2 (14:35)
[2019-02-03] MEDS ORDERED: SUCCINYLCHOLINE CHLORIDE 200 MG/10 ML VIAL ONE (16:02)
[2019-02-03] MEDS ORDERED: ONDANSETRON 4 MG/2 ML VIAL IVPUSH PRN (16:37)
[2019-02-03] MEDS ORDERED: oxyCODONE HCL 5 MG TABLET PO PRN ×4 (16:37)
[2019-02-03] MEDS ORDERED: PROMETHAZINE HCL 25 MG/1 ML VIAL IVPUSH PRN (16:37)
[2019-02-03] MEDS ORDERED: ONDANSETRON 4 MG/2 ML VIAL IVPB PRN (16:37)
[2019-02-03] MEDS ORDERED: ONDANSETRON 4 MG/2 ML VIAL IVPUSH ONE (16:42)
--- NOTE | 2019-02-03 16:43 | OP ---
Operative Note - Note: Operative Date: 02/03/19 Pre-Operative Diagnosis: left breast cancer Operation: left breast capsulotomy with exchange of implant and right mastopexy Implants: left 450cc saline smooth round breast implant Post-Operative Diagnosis: Same as Pre-op Surgeon: Gerry Valente Operative Report Dictated: Yes
[2019-02-03] MEDS ORDERED: LACTATED RINGERS SOLUTION 1,000 ML IV SCH (16:45)
[2019-02-03 17:34] VITALS: TEMP 97.7
[2019-02-03 18:17] VITALS: BP 132/82; PULSE 84
--- NOTE | 2019-02-04 18:15 | OP ---
DATE OF OPERATION: 02/03/2019 TITLE OF PROCEDURE: 1. Left reconstructed breast, periprosthetic capsulectomy with removal of existing implant. 2. Removal of existing implant to left breast. 3. Delayed insertion of permanent saline smooth round implant to left breast reconstruction. 4. Right breast balancing mastopexy. ATTENDING SURGEON: Gerry Valente M.D. ASSISTANTS: None ANESTHESIA: General endotracheal anesthesia. The patient received on the left side only 30 mL of a mixture of 20 mL of Exparel and 20 mL of 0.25% Marcaine plain, the final 10 mL of this was not injected at all. The patient is marked in the holding area. The proposed future nipple on the left breast is sited at 19 cm from the clavicle, not the sternal notch, and a similar position is measured on the contralateral right side in order to perform the mastopexy, a circumvertical mastopexy is planned. Patient is marked with this pattern awake, aware of incisions and resulting scars. Sequential compression stockings and RENARD hose are applied in the holding area. Patient received a gram of Ancef immediately upon starting the operation. She is brought to the operating room, placed in a supine position. Patient is carefully checked by surgical and anesthesia teams, and all pressure points are carefully padded. The patient is then prepped and draped in standard surgical fashion. Timeout was called. Patient, procedure, incision site are verified. The attention is first directed toward the left reconstructed breast, where the original mastectomy incision in the intramammary fold is incised. Dissection carried down to the level of the periprosthetic capsule. The existing tissue roller is removed; this is a 14 cm with tissue roller with a total volume of 425 mL. The planned smooth round saline implant is 13 cm in width; with this, a lateral capsulectomy is performed, elevating free edges of each of the posterior capsule and the anterior capsule on the left lateral extent of the capsule. These free edges are then repaired to one another after hemostasis is performed with a series of interrupted [id number] 2-0 PDS sutures. It should be noted that a residual seroma cavity inferolaterally is obliterated and also sutured closed with a space obliterating 2-0 PDS suture. Superiorly, capsulotomy was performed to allow for better flow both the superior pole. The capsule is irrigated with triple antibiotic solution using a 1-touch technique. The implant was then brought onto the field. After a sizer is placed to assess the volume, a 500 mL smooth and round saline implant is brought onto the field, placed into the pocket, and inflated using a closed filling system to 500 mL. The patient brought to a seated upright position. It is determined that this is too large despite my earlier judgment. It is removed, gloves are changed. A 450 mL smooth round moderate plus profile [place] saline implant reference number [id number] is brought onto the field. It is evacuated of all air, placed into the pocket using closed filling system, and is inflated to 450 mL of saline. The fill tab is capped, tubing is removed. The capsule is closed with the running locking 3-0 Monocryl suture. The space is then closed with a running 3-0 Monocryl suture. Deep dermis is approximated with a Series of interrupted buried deep dermal 3-0 Monocryl suture, and the skin is closed with a running subcuticular 3-0 Monocryl suture. The patient brought to a seated upright position. The right sided mastopexy markings are assured, and the right sided mastopexy is then performed. The skin in between the 42 mm cookie cutter merchandise planner of the areola and the mastopexy pattern is deepithelialized, superior pedicle is developed allowing for superior translocation of the nipple areola, and the inferior pole is bunched in order to allow for a circumvertical incision of skin and fat to round the shape of the breast. These medial and lateral pillars closed with a series of interrupted 3-0 Vicryl suture. The skin is then closed in the vertical limb with a series of interrupted buried deep dermal 3-0 Monocryl suture followed by a running subcuticular 3-0 Monocryl suture. The nipple areola is inset into keyhole pattern with a series of interrupted buried deep dermal 3-0 Monocryl suture followed by a running subcuticular 3-0 Monocryl suture. Several points are closed with 5-0 nylon suture. Patient is brought to a seated upright position, is found to have excellent symmetry of size and shape. The nipple is pink and viable at the end of the procedure. The incision is dressed with half-inch Steri-Strips. A surgical bra is applied. 4x4 gauze, ABD gauze are applied under the surgical bra. The patient is transferred to recovery without complication. Sarah [id number]
--- NOTE | 2019-02-06 12:05 | PATH ---
Surgical Pathology Report Patient Name: PINA MEI Med. Rec. #: [id number] /Age/Gender: 1945 (Age: 73) / F Account: [id number] Location: [facility] Taken: 02/03/2019 Received: 02/03/2019 Reported: 02/06/2019 Physicians: Gerry Valente Specimen(s) Received A: LEFT BREAST CAPSULE B: RIGHT BREAST TISSUE Clinical History Breast cancer Final Diagnosis A., LEFT BREAST, CAPSULECTOMY: FIBROUS CAPSULE SHOWING ACUTE AND CHRONIC INFLAMMATION, HISTIOCYTIC REACTION AND GRANULATION TISSUE FORMATION. B. BREAST, TISSUE, RIGHT, EXCISION: BENIGN BREAST TISSUE. SKIN WITH NO PATHOLOGIC FINDINGS. Electronically Signed Gloria Shah M.D. Gross Description A. Received in formalin labeled "left breast capsule" is an irregular fragment of pink-lopez to white and fibrous tissue measuring 5 x 1 x 0.7 cm. Photoengraver Apprentice sections are submitted in one cassette. B. Received in formalin labeled "right breast tissue" are multiple irregular fragments of skin and fibroadipose tissue measuring 5 x 3 x 1.5 cm in aggregate. No lesions are identified. Photoengraver Apprentice sections are submitted in one cassette [facility]/02/04/2019 [place]/02/04/2019
== END 2019-02-03 18:15 | disposition home or self-care (01) ==
LOC: FASU 09:18
PROVIDERS: ATTEND Plastic Surgery
PROC: 0HST0ZZ Reposition Right Breast, Open Approach (ICD-10-PCS; 2019-02-03)
PROC: 0HSWXZZ Reposition Right Nipple, External Approach (ICD-10-PCS; 2019-02-03)
PROC: 0HPU0JZ Removal of Synthetic Substitute from Left Breast, Open Approach (ICD-10-PCS; principal; 2019-02-03 13:55)
PROC: 0HRU0JZ Replacement of Left Breast with Synthetic Substitute, Open Approach (ICD-10-PCS; 2019-02-03 13:55)
DX: C50.912 Malignant neoplasm of unspecified site of left female breast (principal)
CPT/HCPCS: 94760

== ENCOUNTER 2019-06-29 16:40 | Emergency (ER) | payer OTHER, MEDICARE ==
[2019-06-29] MEDS ORDERED: DIPHTH,PERTUSS(ACELL),TET 0.5 ML DISP.SYRIN IM ONE ×2 (16:41→16:47)
[2019-06-29 17:02] VITALS: BP 105/72; PULSE 86; TEMP 98.6; BMI 23.3
--- NOTE | 2019-06-29 17:23 | PDOC ---
Documentation entered by Dora Pryor SCRIBE, acting as scribe for Danii Stacy DO. Danii Stacy DO: This documentation has been prepared by the tatyibmitul, Dora Pryor SCRIBE, under my direction and personally reviewed by me in its entirety. I confirm that the documentation accurately reflects all work, treatment, procedures, and medical decision making performed by me. History of Present Illness - General Chief Complaint: Tetanus,Booster Stated Complaint: TETNUS SHOT Time Seen by Provider: 06/29/19 16:41 History Source: Patient Exam Limitations: No Limitations - History of Present Illness Initial Comments: 06/29/19 17:03 The patient is a 73-year-old female with a past medical history significant for Left breast CA and HTN (not compliant with medication) who presents to the emergency department for a tetanus shot s/p a laceration to the right leg. The patient reports she injured her right leg on the freezer door on Sunday. The patient reports following up with Dr. Vigil, who prescribed the patient augmentin. The patient states she is keeping the wound dry and changing the dressing as needed. The patient reports her last tetanus shot was over 20 years ago. Denies fever, chills, calf cramping or night shaking. Allergies: NKDA, cat dander PCP: Dr. Vigil. Past History - Past Medical History Allergies/Adverse Reactions: Allergies Allergy/AdvReac Type Severity Reaction Status Date / Time cat dander Allergy Intermediate Itching Verified 06/29/19 16:40 No Known Drug Allergies Allergy Verified 06/29/19 16:40 Home Medications: Ambulatory Orders Carisoprodol [Soma] 350 mg PO HS PRN 01/17/18 Metoprolol Succinate [Toprol Xl] 50 mg PO DAILY 01/17/18 Temazepam [Restoril] 7.5 mg PO HS 01/21/18 Diazepam [Valium] 2 mg PO DAILY PRN 10/03/18 Anastrozole [Arimidex] 1 mg PO DAILY 01/27/19 Atorvastatin Ca [Lipitor] 20 mg PO DAILY 01/27/19 Ergocalciferol (Vitamin D2) [Vitamin D2] 50,000 unit PO WEEKLY 01/27/19 Amoxicillin/Potassium Clav [Augmentin 500-125 Tablet] 1 each PO BID 06/29/19 Anemia: No Asthma: No Cancer: Yes (LEFT BREAST 09/2018) Cardiac Disorders: No CVA: No COPD: No CHF: No Dementia: No Diabetes: No GI Disorders: No Disorders: No HTN: Yes Hypercholesterolemia: Yes Liver Disease: No Seizures: No Thyroid Disease: Yes - Surgical History Abdominal Surgery: No Appendectomy: No Cardiac Surgery: No Cholecystectomy: No Lung Surgery: No Neurologic Surgery: No Orthopedic Surgery: No - Psycho Social/Smoking Cessation Hx Smoking History: Never smoked Have you smoked in the past 12 months: No Hx Alcohol Use: Yes (WINE WITH DINNER) Drug/Substance Use Hx: No Substance Use Type: Alcohol Hx Substance Use Treatment: No Review of Systems - Review of Systems Able to Perform ROS?: Yes Comments:: 06/29/19 17:03 GENERAL/CONSTITUTIONAL: No fever or chills. No weakness. HEAD, EYES, EARS, NOSE AND THROAT: No change in vision. No ear pain or discharge. No sore throat. GASTROINTESTINAL: No nausea, vomiting, diarrhea or constipation. GENITOURINARY: No dysuria, frequency, or change in urination. CARDIOVASCULAR: No chest pain or shortness of breath. RESPIRATORY: No cough, wheezing, or hemoptysis. MUSCULOSKELETAL: No joint or muscle swelling or pain. No neck or back pain. SKIN: No rash NEUROLOGIC: No headache, vertigo, loss of consciousness, or change in strength/ sensation. ENDOCRINE: No increased thirst. No abnormal weight change. HEMATOLOGIC/LYMPHATIC: No anemia, easy bleeding, or history of blood clots. ALLERGIC/IMMUNOLOGIC: No hives or skin allergy. *Physical Exam - Physical Exam Comments: 06/29/19 17:03 Constitutional: Awake, alert, oriented. No acute distress. Cardiovascular: Regular rate. Regular rhythm. S1, S2 regular. Pulmonary/Chest: No evidence of respiratory distress. Clear to auscultation bilaterally Abdominal: Soft and nondistended. There is no tenderness. Musculoskeletal: +skin tear to the right lower extremity with surrounding erythema and swelling. Per patient, the wound is healing well. No bleeding or drainage. Full range of motion in all extremities. ambulatory with a steady gait. Medical Decision Making - Medical Decision Making 06/29/19 16:47 a/p: 73yo female with R leg wound, on abx and improving here for a tetanus booster -last tetanus was >20yrs ago -hx of breat ca on tamoxifen -pt states her doc started her on augmentin and the wound is healing -states she has an appt with onc for sunday -will update tetanus -stable for dc to home Discharge - Discharge Information Problems reviewed: Yes Clinical Impression/Diagnosis: Vaccine for [id number], combined Condition: Stable Disposition: HOME - Admission No - Follow up/Referral Referrals: DR. Santos [Other] - Patient Discharge Instructions Patient Printed Discharge Instructions: Tetanus, Diphtheria, Pertussis (Tdap) Vaccine Additional Instructions: Please follow up with your oncologist as schedule for sunday. Please take all antibiotics as prescribed. Please return to the ED with any further concerns or complaints. - Post Discharge Activity
== END 2019-06-29 16:58 | disposition home or self-care (01) ==
LOC: FER 16:40
PROC: 3E0234Z Introduction of Serum, Toxoid and Vaccine into Muscle, Percutaneous Approach (ICD-10-PCS; principal; 2019-06-29)
DX: Z23 Encounter for immunization (principal); Z20.9 Contact with and (suspected) exposure to unspecified communicable disease; J30.81 Allergic rhinitis due to animal (cat) (dog) hair and dander; Z85.3 Personal history of malignant neoplasm of breast; I10 Essential (primary) hypertension; E78.00 Pure hypercholesterolemia, unspecified; E07.9 Disorder of thyroid, unspecified
CPT/HCPCS: 90715; 99281-25

== ENCOUNTER 2021-08-22 08:52 | Day surgery (SDC) | payer OTHER, MEDICARE ==
[2021-08-17 14:34] VITALS: BMI 24.2
[2021-08-22] MEDS ORDERED: PROPOFOL 20 ML ONE ×3 (08:59→10:10)
[2021-08-22] MEDS ORDERED: LIDOCAINE HCL/PF 2% SDV 5ML VIAL ONE (10:09)
[2021-08-22 11:12] VITALS: TEMP 97.6
[2021-08-22 11:24] VITALS: BP 138/74; PULSE 88
== END 2021-08-22 11:24 | disposition home or self-care (01) ==
LOC: FASU-ENDO 08:52
PROVIDERS: ATTEND Internal Medicine Gastroenterology
PROC: 0DB98ZX Excision of Duodenum, Via Natural or Artificial Opening Endoscopic, Diagnostic (ICD-10-PCS; 2021-08-22)
PROC: 0DB68ZX Excision of Stomach, Via Natural or Artificial Opening Endoscopic, Diagnostic (ICD-10-PCS; 2021-08-22)
PROC: 0DJD8ZZ Inspection of Lower Intestinal Tract, Via Natural or Artificial Opening Endoscopic (ICD-10-PCS; principal; 2021-08-22 10:20)
DX: Z12.11 Encounter for screening for malignant neoplasm of colon (principal); K29.50 Unspecified chronic gastritis without bleeding; R10.13 Epigastric pain; R19.5 Other fecal abnormalities
CPT/HCPCS: 43239; G0121